=== PATIENT | female | born 1965 | race African-American/Black ===

== ENCOUNTER 2024-07-25 18:33 | Inpatient (IN) | payer OTHER ==
[~2024-07-25] VITALS: Ht 167.6 cm; Wt 78.1 kg
[2024-07-25 19:17] LABS: BASOPHILS # (AUTO) 0.1 K/uL (0.0-0.2); BASOPHILS % (AUTO) 0.9 % (0.0-2.0); EOSINOPHILS # (AUTO) 0.2 K/uL (0.0-0.7); EOSINOPHILS % (AUTO) 2.8 % (0.0-6.0); HEMATOCRIT 35 % (33-45); HEMOGLOBIN 11.5 g/dL (11.5-14.8); LYMPHOCYTES # (AUTO) 1.8 K/uL (0.8-4.8); LYMPHOCYTES % (AUTO) 33.4 % (20.0-44.0); MEAN CORPUSCULAR HEMOGLOBIN 31 PG (26.0-33.0); MEAN CORPUSCULAR HGB CONC 33 g/dl (31.0-36.0); MEAN CORPUSCULAR VOLUME 94 fL (82-100); MONOCYTES # (AUTO) 0.6 K/uL (0.1-1.30); MONOCYTES % (AUTO) 10.1 % (2.0-12.0); NEUTROPHILS # (AUTO) 2.9 K/uL (1.8-8.9); NEUTROPHILS % (AUTO) 52.8 % (43.0-81.0); PLATELET COUNT (AUTO) 217 K/uL (150-450); RED BLOOD CELL COUNT(AUTO) 3.67 MIL/uL (4.0-5.2); RED CELL DISTRIBUTION WIDTH 14.4 % (11.5-15.0); WHITE BLOOD COUNT (AUTO) 5.5 K/uL (4.3-11.0)
[2024-07-25 19:33] LABS: INR 0.97 (0.91-1.10); PARTIAL THROMBOPLASTIN TIME 24.2 SEC (24.3-34.3); PROTHROMBIN TIME 10.3 SECS (9.2-11.1)
[2024-07-25 19:39] LABS: CALCIUM, SERUM 8.9 mg/dL (8.5-10.1); CARBON DIOXIDE 26 mmol/L (21-32); CHLORIDE 107 mmol/L (98-107); CREATININE 1.2 mg/dL (0.6-1.3); GLUCOSE 236 mg/dL (74-106); POTASSIUM 4.6 mmol/L (3.5-5.1); SODIUM SERUM 141 mmol/L (136-145); UREA NITROGEN, BLOOD 22 mg/dL (7-18)
[2024-07-25 19:45] LABS: ALANINE AMINOTRANSFERASE 12 U/L (12-78); ALBUMIN 2.8 g/dL (3.4-5.0); ALCOHOL, BLOOD < 3 mg/dL (0-10); ALKALINE PHOSPHATASE 118 U/L (46-116); ASPARTATE AMINOTRANSFERASE 9 U/L (15-37); BILIRUBIN,DIRECT 0.1 mg/dL (0.0-0.2); BILIRUBIN,TOTAL 0.2 mg/dL (0.2-1.0); TOTAL PROTEIN, SERUM 6.6 g/dL (6.4-8.2)
[2024-07-25] MEDS ORDERED: LEVETIRACETAM (250 MG) 250 MG TABLET PO ONE (19:49)
[2024-07-25] MEDS ORDERED: TRAMADOL HCL 50 MG TABLET ONE (19:49)
[2024-07-25] MEDS: TRAMADOL HCL 50 MG TABLET PO ONE (19:53)
[2024-07-25] MEDS: LEVETIRACETAM (250 MG) 250 MG TABLET PO ONE (19:53)
[2024-07-25] MEDS ORDERED: Z GUARD REMEDY 4 OZ OINT TP PRN (21:30)
[2024-07-25] MEDS ORDERED: ONDANSETRON HCL/PF 4 MG/2 ML VIAL IVP PRN (21:30)
[2024-07-25] MEDS ORDERED: MAGNESIUM HYDROXIDE 30 ML UDC PO PRN (21:30)
[2024-07-25] MEDS ORDERED: MAG HYDROX/AL HYDROX/SIMETH 30 ML UDC PO PRN (21:30)
[2024-07-25 22:33] VITALS: BP 145/121; TEMP 98.4; O2SAT 95
[2024-07-25] MEDS: IV NS 0.9% 1,000 ML IV PRN (22:45)
[2024-07-25] MEDS ORDERED: LEVETIRACETAM (500MG) 500 MG/5 ML VIAL IV ONE (22:57)
[2024-07-25 23:00] VITALS: BP 119/75; O2SAT 93
[2024-07-25] MEDS: LEVETIRACETAM (500MG) 1,000 MG in IV NS 0.9% 90 ML IV SCH (23:01)
[2024-07-26] VITALS (23 sets, daily range): BP systolic 100–148; BP diastolic 44–107; TEMP 98.1–98.8; O2SAT 91–100
[2024-07-26] MEDS: LORAZEPAM INJ 2 MG/ML VIAL IV PRN (01:34)
[2024-07-26 04:20] LABS: BASOPHILS % (AUTO) 0.7 % (0.0-2.0); EOSINOPHILS # (AUTO) 0.1 K/uL (0.0-0.7); EOSINOPHILS % (AUTO) 2.8 % (0.0-6.0); HEMATOCRIT 34 % (33-45); HEMOGLOBIN 11.2 g/dL (11.5-14.8); LYMPHOCYTES # (AUTO) 2.2 K/uL (0.8-4.8); LYMPHOCYTES % (AUTO) 44.4 % (20.0-44.0); MEAN CORPUSCULAR HEMOGLOBIN 31 PG (26.0-33.0); MEAN CORPUSCULAR HGB CONC 33 g/dl (31.0-36.0); MEAN CORPUSCULAR VOLUME 94 fL (82-100); MONOCYTES # (AUTO) 0.5 K/uL (0.1-1.30); MONOCYTES % (AUTO) 9.5 % (2.0-12.0); NEUTROPHILS # (AUTO) 2.1 K/uL (1.8-8.9); NEUTROPHILS % (AUTO) 42.6 % (43.0-81.0); PLATELET COUNT (AUTO) 217 K/uL (150-450); RED CELL DISTRIBUTION WIDTH 14.4 % (11.5-15.0)
[2024-07-26 04:59] LABS: THYROID STIMULATING HORMONE 0.7 uIU/mL (0.358-3.74)
[2024-07-26 05:21] LABS: ALBUMIN 2.7 g/dL (3.4-5.0); BILIRUBIN,DIRECT 0.1 mg/dL (0.0-0.2); BILIRUBIN,TOTAL 0.3 mg/dL (0.2-1.0); CALCIUM, SERUM 8.5 mg/dL (8.5-10.1); CREATININE 1.1 mg/dL (0.6-1.3); MAGNESIUM 1.7 mg/dL (1.8-2.4); POTASSIUM 4.6 mmol/L (3.5-5.1); TOTAL PROTEIN, SERUM 6.4 g/dL (6.4-8.2)
[2024-07-26] MEDS: PANTOPRAZOLE 40 MG TABLET.DR PO SCH (08:09)
[2024-07-26] MEDS: LEVETIRACETAM (500MG) 500 MG in IV NS 0.9% 100 ML IV SCH (08:09)
[2024-07-26] MEDS: Magnesium 1GM/D5W 100ML PREMIX 100 ML IV SCH (10:03)
[2024-07-26] MEDS: ACETAMINOPHEN 325 MG TABLET PO PRN (10:08)
[2024-07-26] MEDS ORDERED: TEMA15CA PO (14:24)
[2024-07-26] MEDS ORDERED: LORA-259 PO (14:24)
[2024-07-26] MEDS ORDERED: DIPH25CA51 PO (14:24)
[2024-07-26] MEDS ORDERED: ALBU90AE IH (14:24)
[2024-07-26] MEDS ORDERED: HYDR-4303 PO (14:24)
[2024-07-26] MEDS ORDERED: LEVE500T9 PO (14:24)
[2024-07-26] MEDS ORDERED: DEXTROSE 50%-WATER 50 ML DISP.SYRIN IV PRN (15:00)
[2024-07-26] MEDS: METFORMIN 500 MG TABLET PO SCH (15:04)
[2024-07-26] MEDS: INSULIN REGULAR, HUMAN 100 UNIT/ML 3 ML VIAL SQ PRN (18:10)
[2024-07-26] MEDS: BLOOD SUGAR DIAGNOSTIC 1 EACH STRIP IN SCH (18:11)
[2024-07-27] VITALS: BP 151/59; TEMP 98.4; O2SAT 96
[2024-07-27 04:00] VITALS: BP 160/91; TEMP 98.2; O2SAT 98
[2024-07-27 06:07] LABS: FOLIC ACID 10.3 ng/mL (>3.0)
[2024-07-27 06:45] LABS: BASOPHILS % (AUTO) 0.8 % (0.0-2.0); EOSINOPHILS # (AUTO) 0.2 K/uL (0.0-0.7); EOSINOPHILS % (AUTO) 3.7 % (0.0-6.0); HEMATOCRIT 31 % (33-45); LYMPHOCYTES # (AUTO) 1.4 K/uL (0.8-4.8); LYMPHOCYTES % (AUTO) 33.9 % (20.0-44.0); MEAN CORPUSCULAR HEMOGLOBIN 32 PG (26.0-33.0); MEAN CORPUSCULAR HGB CONC 32 g/dl (31.0-36.0); MEAN CORPUSCULAR VOLUME 99 fL (82-100); MONOCYTES # (AUTO) 0.4 K/uL (0.1-1.30); MONOCYTES % (AUTO) 9.7 % (2.0-12.0); NEUTROPHILS # (AUTO) 2.2 K/uL (1.8-8.9); NEUTROPHILS % (AUTO) 51.9 % (43.0-81.0); PLATELET COUNT (AUTO) 125 K/uL (150-450); RED BLOOD CELL COUNT(AUTO) 3.17 MIL/uL (4.0-5.2); RED CELL DISTRIBUTION WIDTH 13.8 % (11.5-15.0); WHITE BLOOD COUNT (AUTO) 4.3 K/uL (4.3-11.0)
[2024-07-27 07:30] LABS: ALBUMIN 2.2 g/dL (3.4-5.0); BILIRUBIN,TOTAL 0.3 mg/dL (0.2-1.0); CALCIUM, SERUM 7.2 mg/dL (8.5-10.1); CREATININE 0.8 mg/dL (0.6-1.3); MAGNESIUM 1.5 mg/dL (1.8-2.4); PHOSPHORUS 3.3 mg/dL (2.5-4.9); POTASSIUM 3.9 mmol/L (3.5-5.1); TOTAL PROTEIN, SERUM 5.4 g/dL (6.4-8.2)
[2024-07-27 08:00] VITALS: BP 138/107; TEMP 97.9; O2SAT 95
[2024-07-27] MEDS: MAGNESIUM OXIDE 400 MG TABLET PO ONE (11:23)
[2024-07-27 12:00] VITALS: BP 137/73; TEMP 98.1; O2SAT 98
[2024-07-27] MEDS ORDERED: GADOTERATE MEGLUMINE 10 MMOL/20 ML VIAL IV ONE (14:42)
[2024-07-27 16:00] VITALS: BP 140/88; TEMP 98.2; O2SAT 99
[2024-07-29 16:10] LABS: VITAMIN B1 THIAMINE,WB 84.8 nmol/L (66.5-200.0)
== END 2024-07-27 17:55 | disposition left against medical advice (07) | DRG 44 ==
LOC: ER 18:41 → ICU 21:02 → TELE1 07-26 16:07 → MEDSG1 07-27 13:55
PROVIDERS: ADMIT Nurse Practitioner Family
DX: I61.1 Nontraumatic intracerebral hemorrhage in hemisphere, cortical (principal); E88.09 Other disorders of plasma-protein metabolism, not elsewhere classified; D64.9 Anemia, unspecified; E66.9 Obesity, unspecified; G40.909 Epilepsy, unspecified, not intractable, without status epilepticus; E11.9 Type 2 diabetes mellitus without complications; I10 Essential (primary) hypertension; Z88.0 Allergy status to penicillin; Z68.27 Body mass index [BMI] 27.0-27.9, adult; Z86.73 Personal history of transient ischemic attack (TIA), and cerebral infarction without residual deficits
CPT/HCPCS: 36415; 70450-TC; 70553-TC; 71045-TC; 80048-TC; 80053-TC; 80076-TC; 82607-TC; 82962-TC; 83735-TC; 83921; 84100-TC; 84425; 84443-TC; 85025-TC; 85730-TC; 97116-TC; 97530-TC; 97535-TC; A4223; A9575; G0378; G0480; J1815; J1953; J2060; J3475; J7030; J7050